=== PATIENT | male | born 1980 | race Caucasian/White ===

== ENCOUNTER 2017-01-12 10:15 | Emergency (ER) | payer BC ==
[2017-01-12 10:56] LABS: #Basophils 0.1 thou/uL (0.0-0.2); #Eosinphils 0.2 thou/uL (0.0-0.7); #Lymphocytes 2.4 thou/uL (1.20-3.40); #Monocytes 1.2 thou/uL (0.11-0.59); #Neutrophils 11.7 thou/uL (1.40-6.50); %Basophils 0.3 % (0.0-1.0); %Eosinophils 1.2 % (0.0-10.0); %Lymphocytes 15.2 % (21.0-51.0); %Monocytes 7.7 % (0.0-10.0); Hematocrit 45.6 % (42.0-52.0); Mean Platelet Volume 9.2 fL (7.4-10.4); Red Blood Cell (RBC) Count 4.32 mill/uL (4.70-6.10); White Blood Cell (WBC) Count 15.5 thou/uL (4.8-10.8)
[2017-01-12 11:27] LABS: ALT (SGPT) 158 U/L (8-55); AST (SGOT) 64 U/L (5-34); Alkaline Phosphatase 68 U/L (40-150); Anion Gap 14 mmol/L (10-20); BUN (Urea Nitrogen) 11 mg/dL (8.9-20.6); Bilirubin, Total 0.7 mg/dL (0.2-1.2); Calc. Creatinine Clearance 0 mL/min (70-130); Calcium 10.1 mg/dL (7.8-10.44); Carbon Dioxide 26 mmol/L (22-29); Chloride 103 mmol/L (98-107); Estimated GFR-MDRD Greater than 90; Globulin 3.5 g/dL (2.4-3.5); Lipase 17 U/L (8-78); Protein, Total 8.3 g/dL (6.0-8.3)
[2017-01-12 11:39] LABS: ALT (SGPT) 155 U/L (8-55); AST (SGOT) 64 U/L (5-34); Alkaline Phosphatase 67 U/L (40-150); Bilirubin, Direct 0.2 mg/dL (0.1-0.3); Bilirubin, Total 0.6 mg/dL (0.2-1.2)
[2017-01-12 11:41] LABS: Bilirubin Negative (Negative); Blood, Urine Negative (Negative); Glucose, Urine (Dipstick) Negative (Negative); Ketone, Urine Negative (Negative); Nitrite Negative (Negative); Protein, Urine (Dipstick) Trace mg/dL (Neg-Trace)
[2017-01-12] MEDS ORDERED: Ondansetron HCl/PF 4 MG/2 ML Vial ONE (13:04)
[2017-01-12] MEDS ORDERED: Ciprofloxacin 500 MG TAB ONE (14:46)
[2017-01-12] MEDS ORDERED: metroNIDAZOLE 250 MG TAB ONE (14:46)
[2017-01-12] MEDS ORDERED: Iopamidol 370 76% 50 ML VIAL FS ONE (16:44)
[2017-01-12] MEDS ORDERED: ISOVUE-370 76%-LOCM 1 ML ONE (16:44)
--- NOTE | 2017-01-12 17:02 | CT ---
CONTRAST ENHANCED CT OF THE ABDOMEN AND PELVIS: History: Left upper quadrant abdominal pain. Technique: Contrast enhanced images of the abdomen and pelvis obtained after administration of IV an d oral contrast. FINDINGS: There are areas of atelectasis in the lung bases. No evidence of free intraperitoneal air is seen. The liver and spleen are unremarkable. The gallbladder and pancreas are unremarkable. Adrenal glands and kidneys are unremarkable. No dilated loops of small bowel seen. A normal appendix is visualized . There is extensive descending colonic diverticulosis. A moderately long approximately 15 cm area of thickening seen in the descending colon. There are numerous diverticula present in this region. Ther e is extensive fat stranding surrounding the descending colonic fat as well as marked thickening of the wall. This is compatible with possible diverticulitis. The sigmoid colon and rectum are unremark able. IMPRESSION: Diverticulosis and pericolonic fat stranding and thickening compatible with diverticulitis in the de scending colon. POS: GAVINO
== END 2017-01-12 14:55 | disposition home or self-care (01) ==
LOC: ERS 10:15
DX: K57.92 Diverticulitis of intestine, part unspecified, without perforation or abscess without bleeding (principal)
CPT/HCPCS: 36415; 74177; 80053; 81003; 83690; 85025; 96374; 96375; J2270; J2405

== ENCOUNTER 2022-02-04 06:45 | Inpatient (IN) | payer SELFPAY ==
[2022-02-04] MEDS ORDERED: Morphine 2 MG/ML VIAL SLOW IVP PRN (11:20)
[2022-02-04] MEDS ORDERED: Ondansetron ODT 4 MG TAB PO PRN (11:25)
[2022-02-04] MEDS ORDERED: Ondansetron PF 4 MG/2 ML Vial IVP PRN (11:25)
[2022-02-04] MEDS ORDERED: Acetaminophen 325 MG TAB PO PRN (11:25)
[2022-02-04] MEDS ORDERED: Sodium Chloride 0.9% 1,000 ML IV SCH (11:30)
[2022-02-04] MEDS: Ketorolac Tromethamine 30 MG/ML VIAL IVP SCH ×3 (12:35→23:23)
[2022-02-04] MEDS: Nicotine 14 MG PATCH TD SCH (12:35)
[2022-02-04] MEDS ORDERED: Piperacillin/Tazobactam 3.375 GM in Sodium Chloride 0.9% 100 ML IVPB SCH ×2 (14:00→18:00)
[2022-02-04 14:08] VITALS: BMI 22.4
[2022-02-04] MEDS ORDERED: FLU VACC QS2022-23(6MOS UP)/PF 60 MCG/0.5 ML SYRINGE IM ONE (14:45)
[2022-02-04 17:04] LABS: SARS-CoV-2 NAA Rapid Test Not Detected (NotDetected)
[2022-02-04] MEDS ORDERED: Ketorolac Tromethamine 30 MG/ML VIAL IVP SCH (18:30)
[2022-02-04] MEDS ORDERED: Acetaminophen 500 MG TAB PO SCH (18:30)
[2022-02-04] MEDS: Piperacillin/Tazobactam 3.375 GM in Sodium Chloride 0.9% 100 ML IVPB SCH (19:00)
[2022-02-04] MEDS: Lactated Ringer's 1,000 ML IV SCH (19:20)
[2022-02-04] MEDS: Famotidine/PF 20 mg/2ml Vial SLOW IVP SCH (20:32)
[2022-02-04] MEDS: Enoxaparin Sodium 40 MG/0.4 ML SYRINGE SC SCH (20:32)
[2022-02-04] MEDS ORDERED: Piperacillin/Tazobactam 4.5 GM in Sodium Chloride 0.9% 100 ML IVPB SCH (22:00)
[2022-02-05] MEDS: Piperacillin/Tazobactam 3.375 GM in Sodium Chloride 0.9% 100 ML IVPB SCH ×3 (02:38→20:12)
[2022-02-05] MEDS: Lactated Ringer's 1,000 ML IV SCH (02:39)
[2022-02-05] MEDS: Acetaminophen 500 MG TAB PO PRN ×2 (02:41→20:12)
[2022-02-05] MEDS: Ketorolac Tromethamine 30 MG/ML VIAL IVP SCH ×3 (06:14→18:10)
[2022-02-05 06:16] LABS: #Basophils 0.1 thou/uL (0.0-0.2); #Eosinphils 0.2 thou/uL (0.0-0.7); #Lymphocytes 2.4 thou/uL (1.20-3.40); #Monocytes 1.4 thou/uL (0.11-0.59); #Neutrophils 11.7 thou/uL (1.40-6.50); %Basophils 0.4 % (0.0-1.0); %Lymphocytes 15.4 % (21.0-51.0); %Monocytes 8.6 % (0.0-10.0); %Neutrophils 74.6 % (42.0-75.0); Hemoglobin 11.7 g/dL (14.0-18.0); Mean Corpuscular HGB CONC 32.5 g/dL (32.0-36.0); Mean Corpuscular Hemoglobin 33.3 pg (27.0-31.0); Mean Platelet Volume 10.2 fL (7.4-10.4); Platelet Count 187 thou/uL (130-400); RBC Distribution Width 11.3 % (11.5-14.5); Red Blood Cell (RBC) Count 3.51 mill/uL (4.70-6.10); White Blood Cell (WBC) Count 15.7 thou/uL (4.8-10.8)
[2022-02-05 06:19] LABS: Anion Gap 19 mmol/L (10-20); BUN (Urea Nitrogen) 16 mg/dL (8.9-20.6); Calc. Creatinine Clearance 133 mL/min (70-130); Calcium 9.2 mg/dL (7.8-10.44); Carbon Dioxide 18 mmol/L (22-29); Chloride 104 mmol/L (98-107); Estimated GFR 114; Potassium 3.7 mmol/L (3.5-5.1); Sodium 137 mmol/L (136-145)
[2022-02-05 06:30] LABS: Glucose 55 mg/dL (70-105)
[2022-02-05] MEDS: Famotidine/PF 20 mg/2ml Vial SLOW IVP SCH ×2 (07:55→20:12)
[2022-02-05] MEDS: Nicotine 14 MG PATCH TD SCH (11:01)
[2022-02-05] MEDS: Dextrose 5%-Lactated Ringers 1,000 ML IV SCH ×2 (11:01→18:17)
[2022-02-05] MEDS: Enoxaparin Sodium 40 MG/0.4 ML SYRINGE SC SCH (20:06)
[2022-02-06] MEDS: Ketorolac Tromethamine 30 MG/ML VIAL IVP SCH ×2 (00:21→05:42)
[2022-02-06] MEDS: Dextrose 5%-Lactated Ringers 1,000 ML IV SCH (03:15)
[2022-02-06] MEDS: Piperacillin/Tazobactam 3.375 GM in Sodium Chloride 0.9% 100 ML IVPB SCH ×3 (03:36→20:51)
[2022-02-06 06:34] LABS: #Eosinphils 0.1 thou/uL (0.0-0.7); #Lymphocytes 1.9 thou/uL (1.20-3.40); #Monocytes 1.2 thou/uL (0.11-0.59); #Neutrophils 8.3 thou/uL (1.40-6.50); %Eosinophils 1.1 % (0.0-10.0); %Lymphocytes 16.5 % (21.0-51.0); %Monocytes 10.2 % (0.0-10.0); %Neutrophils 72.2 % (42.0-75.0); Hemoglobin 10.4 g/dL (14.0-18.0); Mean Corpuscular HGB CONC 32.3 g/dL (32.0-36.0); Mean Platelet Volume 9.7 fL (7.4-10.4); Platelet Count 183 thou/uL (130-400); RBC Distribution Width 11.2 % (11.5-14.5); Red Blood Cell (RBC) Count 3.15 mill/uL (4.70-6.10); White Blood Cell (WBC) Count 11.5 thou/uL (4.8-10.8)
[2022-02-06 07:45] LABS: Anion Gap 11 mmol/L (10-20); BUN (Urea Nitrogen) 4 mg/dL (8.9-20.6); Calc. Creatinine Clearance 152 mL/min (70-130); Calcium 8.7 mg/dL (7.8-10.44); Carbon Dioxide 26 mmol/L (22-29); Chloride 106 mmol/L (98-107); Estimated GFR 118; Glucose 92 mg/dL (70-105); Potassium 3.5 mmol/L (3.5-5.1); Sodium 139 mmol/L (136-145)
[2022-02-06] MEDS: Famotidine/PF 20 mg/2ml Vial SLOW IVP SCH (09:04)
[2022-02-06] MEDS: Nicotine 14 MG PATCH TD SCH (09:12)
[2022-02-06] MEDS ORDERED: traMADol HCl 50 MG TAB PO PRN (11:35)
[2022-02-06] MEDS ORDERED: Ibuprofen 600 MG TAB PO PRN (11:35)
[2022-02-06] MEDS: Acetaminophen 500 MG TAB PO PRN (16:33)
[2022-02-06] MEDS: Enoxaparin Sodium 40 MG/0.4 ML SYRINGE SC SCH (20:52)
[2022-02-07] MEDS: Piperacillin/Tazobactam 3.375 GM in Sodium Chloride 0.9% 100 ML IVPB SCH (04:00)
[2022-02-07] MEDS: Acetaminophen 500 MG TAB PO PRN (04:04)
[2022-02-07 07:06] LABS: #Eosinphils 0.2 thou/uL (0.0-0.7); #Lymphocytes 2.2 thou/uL (1.20-3.40); #Monocytes 0.8 thou/uL (0.11-0.59); #Neutrophils 5.8 thou/uL (1.40-6.50); %Basophils 0.5 % (0.0-1.0); %Eosinophils 2.7 % (0.0-10.0); %Monocytes 8.8 % (0.0-10.0); Hemoglobin 11.1 g/dL (14.0-18.0); Mean Corpuscular HGB CONC 33.4 g/dL (32.0-36.0); Mean Corpuscular Hemoglobin 34.2 pg (27.0-31.0); Mean Platelet Volume 9.8 fL (7.4-10.4); Platelet Count 208 thou/uL (130-400); RBC Distribution Width 11.5 % (11.5-14.5); Red Blood Cell (RBC) Count 3.24 mill/uL (4.70-6.10); White Blood Cell (WBC) Count 9.1 thou/uL (4.8-10.8)
[2022-02-07 07:25] LABS: Anion Gap 11 mmol/L (10-20); BUN (Urea Nitrogen) 4 mg/dL (8.9-20.6); Calc. Creatinine Clearance 142 mL/min (70-130); Calcium 8.9 mg/dL (7.8-10.44); Carbon Dioxide 28 mmol/L (22-29); Chloride 105 mmol/L (98-107); Estimated GFR 116; Glucose 92 mg/dL (70-105); Potassium 3.8 mmol/L (3.5-5.1); Sodium 140 mmol/L (136-145)
[2022-02-07] MEDS ORDERED: Amoxicillin/Potassium Clav 875 MG TAB PO SCH (08:00)
[2022-02-07 08:18] VITALS: BP 111/78; TEMP 98.2
[2022-02-07] MEDS ORDERED: metroNIDAZOLE 500 MG TAB PO SCH (09:00)
== END 2022-02-07 11:10 | disposition home or self-care (01) | DRG 391 ==
LOC: T4-B 07:44 → OBSVTOIN 11:10
PROVIDERS: ADMIT Internal Medicine; ATTEND Internal Medicine
DX: K57.20 Diverticulitis of large intestine with perforation and abscess without bleeding (principal); K65.1 Peritoneal abscess; Z20.822 Contact with and (suspected) exposure to COVID-19; E78.5 Hyperlipidemia, unspecified; F17.210 Nicotine dependence, cigarettes, uncomplicated; Z88.1 Allergy status to other antibiotic agents
CPT/HCPCS: 36415; 36416; 80048; 83605; 85025; 87040; J1650; J1885; J2543; J3490; J7050; J7120; S0028; U0002